=== PATIENT | female | born 1950 | race African-American/Black ===

== ENCOUNTER 2016-08-19 13:39 | Outpatient (CLI) | payer BC ==
--- NOTE | 2016-08-19 20:22 | RAD ---
CHEST TWO VIEWS: Date: 08-19-16 FINDINGS: The heart is normal in size. The mediastinum was unremarkable in appearance. Calcification is seen i n the aortic arch. The lungs are clear and fully inflated. No infiltrate or effusion was seen. The b janet structures appeared intact. IMPRESSION: Mild arterial sclerotic change but no acute thoracic finding. POS: HOME
== END 2016-08-19 13:40 | disposition home or self-care (01) ==
LOC: BURRAD 13:39
PROVIDERS: ATTEND Family Medicine
DX: R22.2 Localized swelling, mass and lump, trunk (principal); I70.0 Atherosclerosis of aorta
CPT/HCPCS: 71020

== ENCOUNTER 2021-08-02 11:50 | Emergency (ER) | payer MEDICARE | END 2021-08-02 12:15 | disposition home or self-care (01) | LOC: BURERS 11:50 | DX: J30.9 Allergic rhinitis, unspecified (principal); E11.9 Type 2 diabetes mellitus without complications; I10 Essential (primary) hypertension; Z79.82 Long term (current) use of aspirin; Z79.899 Other long term (current) drug therapy | CPT/HCPCS: 99283 ==

== ENCOUNTER 2021-12-09 14:25 | Emergency (ER) | payer MEDICARE | END 2021-12-09 14:44 | disposition home or self-care (01) | LOC: BURERS 14:25 | DX: J30.9 Allergic rhinitis, unspecified (principal); I10 Essential (primary) hypertension; E11.9 Type 2 diabetes mellitus without complications | CPT/HCPCS: 99283 ==

== ENCOUNTER 2024-05-17 14:33 | Outpatient (CLI) | payer MEDICARE | END 2024-05-17 14:34 | disposition home or self-care (01) | LOC: BURRAD 14:33 | PROVIDERS: ATTEND Nurse Practitioner Family | DX: M25.551 Pain in right hip (principal) | CPT/HCPCS: 72170 ==

== ENCOUNTER 2025-01-07 15:12 | Emergency (ER) | payer MEDICARE | END 2025-01-07 16:00 | disposition home or self-care (01) | LOC: BURERS 15:12 | DX: M79.89 Other specified soft tissue disorders (principal); R60.0 Localized edema; I10 Essential (primary) hypertension; Z79.899 Other long term (current) drug therapy | CPT/HCPCS: 99283 ==

== ENCOUNTER 2025-01-08 14:51 | Emergency (ER) | payer MEDICARE | END 2025-01-08 15:39 | disposition home or self-care (01) | LOC: BURERS 14:51 | DX: R60.9 Edema, unspecified (principal); I10 Essential (primary) hypertension | CPT/HCPCS: 99283 ==